=== PATIENT | female | born 1980 | race Two or more races ===

== ENCOUNTER 2025-03-24 16:14 | Emergency (ER) | payer MEDICAID, SELFPAY ==
[2025-03-24 16:15] VITALS: BMI 52.1
[2025-03-24 16:35] VITALS: BP 176/80; PULSE 87; RESP 18; TEMP 36.8; O2SAT 97
--- NOTE | 2025-03-24 16:43 | EDNOTE_ITS ---
<Statement entered by Charisse Whitney MD - 03/27/25 07:25> As co-signing physician, I was present and available for consult prn. I concur with the plan and care as documented by the midlevel provider. ED General RME/HPI General Chief complaint: General Adult/Misc Complain Stated complaint: FRYING TACOS, OIL SPLASHED OVER ARMS/ABD Time Seen by Provider: 03/24/25 16:58 Source: patient Arrival date/time: 03/24/25 16:14 44-year-old female with no known medical history presents to the emergency room with a chief complaint of small box to her abdomen and left arm. Patient states she was frying tacos and the oil splashed and got her in the abdomen and in her arms. Mode of arrival: ambulatory Limitations: no limitations Related Data Previous Rx's ?Medication ?Instructions ?Recorded hydrocortisone acetate 25 mg 25 mg IN BID for hemorrho ids #12 ea 12/11/21 rectal suppository (Anusol-HC) ondansetron 8 mg disintegrating 8 mg PO Q6HR PRN nause a and 05/13/23 tablet vomiting #20 tabs tramadol 50 mg tablet 50 mg PO BID PRN pain #7 tab s 06/11/23 bacitracin 500 unit/gram topical 1 applic topical TID #28 grams 03/24/25 ointment Allergies Allergy/AdvReac Type Severity Reaction Status Date / Time aspirin Allergy Unknown Hives Verified 03/24/25 16:18 Review of Systems Review of Systems Systems Reviewed: All systems reviewed, normal except as documented Constitutional Constitutional: Reports system reviewed and no additional complaints, except as documented, Denies fatigue, Denies fever(s), Denies headache(s) and Denies weakness Eyes Eyes: Reports system reviewed and no additional complaints, except as documented, Denies blurry vision and Denies change in vision ENT Ears, Nose, Mouth, and Throat: Reports system reviewed and no additional complaints, except as documented, Denies otalgia, Denies headache(s), Denies nasal congestion, Denies throat swelling and Denies vertigo Cardiovascular Cardiovascular: Reports system reviewed and no additional complaints, except as documented, Denies chest pain, Denies dyspnea and Denies dyspnea on exertion Respiratory Respiratory: Reports system reviewed and no additional complaints, except as documented, Denies chest congestion, Denies cough, Denies dyspnea, Denies dyspnea on exertion and Denies wheezing Gastrointestinal Gastrointestinal: Reports system reviewed and no additional complaints, except as documented, Denies abdominal pain, Denies cramping, Denies nausea and Denies vomiting Genitourinary Genitourinary: Reports system reviewed and no additional complaints, except as documented Musculoskeletal Musculoskeletal: Reports system reviewed and no additional complaints, except as documented and Denies back pain Integumentary/Breasts Skin/Breast: Reports system reviewed and no additional complaints, except as documented and Reports wounds Neurologic Neurologic: Reports system reviewed and no additional complaints, except as documented, Denies confusion, Denies headache(s), Denies lack of coordination, Denies vertigo and Denies weakness Psychiatric Psychiatric: Reports system reviewed and no additional complaints, except as documented, Denies anxiety, Denies confusion, Denies depression, Denies paranoia, Denies suicidal ideation and Denies tactile hallucinations Endocrine Endocrine: Reports system reviewed and no additional complaints, except as documented and Denies fatigue Hematologic/Lymphatic Hematologic/Lymphatic: Reports system reviewed and no additional complaints, except as documented and Denies lymphadenopathy Allergic/Immunologic Allergic/Immunologic: Reports system reviewed and no additional complaints, except as documented, Denies throat swelling, Denies urticaria and Denies wheezing Past Medical History Past Medical History CARDIAC: Negative Cardiac Disorders or Congestive Heart Failure RESPIRATORY: Negative Chronic Obstructive Pulmonary Disease (COPD) or Asthma GENITOURINARY: Negative Renal Disease ENDOCRINE: Positive Diabetes Mellitus Type 2; Negative Diabetes Mellitus Type 1 HEMATOLOGIC: Negative Sickle Cell Disease Social History SMOKING STATUS: Never smoker ED Exam General Limitations: Present no limitations General appearance: Present alert and in no apparent distress Head Head exam: Present atraumatic Eye Eye exam: Present normal appearance, PERRL and EOMI ENT ENT exam: Present normal exam, normal oropharynx and mucous membranes moist Neck Neck exam: Present normal inspection, full ROM and trachea midline Chest Chest inspection: Present normal inspection and symmetric chest wall rise Respiratory Respiratory exam: Present normal lung sounds bilaterally Cardiovascular Cardiovascular exam: Present regular rate, normal rhythm and normal heart sounds Abdominal Exam Abdominal exam: Present soft and normal bowel sounds Extremities Exam Extremities exam: Present normal inspection and full ROM Back Exam Back exam: Present normal inspection and full ROM Neurological Exam Neurological exam: Present alert, oriented X3 and CN II-XII intact Psychiatric Psychiatric exam: Present normal affect and normal mood Skin Skin exam: Present warm, dry, intact and normal color Expanded Skin Exam Type of lesion: Present other (Burn) Distribution: Present abdomen and LUE Description: Present erythematous and swelling; Absent blisters Body image: 2 1. First-degree burn to the left upper quadrant abdominal area. It is erythemic and not in a blister 2. Multiple first-degree box from oil splashing on her left upper arm. She has a first-degree burn erythemic and not in the blister. Course Quality Measures none Orders Category Date Time Status Wound Care X1 Care 03/24/25 16:42 Completed Bacitracin Oint pkt Med 03/24/25 16:42 Discontinued 1 gm TOP X1 ONE Vital Signs Vital signs: Vital Signs Temperature 98.2 F 03/24/25 16:35 Pulse Rate 87 03/24/25 16:35 Respiratory Rate 18 03/24/25 16:35 Blood Pressure 176/80 H 03/24/25 16:35 Pulse Oximetry (%) 97 03/24/25 16:35 Oxygen Delivery Method Room Air 03/24/25 16:35 Discharge Plan Plan Patient Disposition: HOME (Self Care) Discharge Disposition comment: Stable Prescriptions/Referrals Prescriptions/Med Rec: New bacitracin 500 unit/gram ointment 1 applic topical TID Qty: 28 0RF No Action hydrocortisone acetate [Anusol-HC] 25 mg suppository 25 mg IN BID Qty: 12 0RF ondansetron 8 mg tablet,disintegrating 8 mg PO Q6HR PRN (Reason: nausea and vomiting) Qty: 20 0RF tramadol 50 mg tablet 50 mg PO BID PRN (Reason: pain) Qty: 7 0RF Problem List Clinical Impression: First degree burn Patient/Caregiver Discharge Instructions Education Materials: ED BURN Wound Check [No Infection] Additional Instructions: Please follow-up with your primary care provider in the next 24 to 48 hours. Antibiotic ointment was sent to your pharmacy please pick it up and put it on your wounds. For any evidence of worsening signs or symptoms return to the emergency room immediate Print Language: Vietnamese Stand Alone Forms: [employer] Award Info., Patient Portal Info Letter PA/REVENUE FIELD AUDITOR Supervising Physician PA/REVENUE FIELD AUDITOR Supervising Physician: Dr. Starkey MDM Narrative MDM hospital course (for use when minimal MDM required): 44-year-old female with no known medical history presents to the emergency room with a chief complaint of small box to her abdomen and left arm. Patient states she was frying tacos and the oil splashed and got her in the abdomen and in her arms. Patient is hemodynamically stable and in no apparent distress. Physical examination shows a first-degree burn to the left upper quadrant abdominal area and left upper arm from frying oil splashing on it. The box are erythemic, and not in the blister. A bacitracin dressing was placed Xeroform and bacitracin dressing was placed in the abdominal burn patient was discharged and educated to follow-up with her primary care provider and return to the emergency room for any evidence of worsening signs or symptoms. None of the box are circumferential or extend past the epidermis Clinical Information Provided by: patient Medical [facility] Meds/Rx considered, not ordered None Labs/Rad/Tests considered, not ordered None Chronic Illness/Social Conditions which may negatively complicate care or outcome(s)-explain: None or not applicable EKG EKG not done Labs Labs: none Imaging Imaging interpretation: none or see narrative above Medication Administration(s) Medication Administration History Discontinued Medications Bacitracin (Bacitracin Oint 1 Gm Packet) 1 gm TOP X1 ONE Stop: 03/24/25 16:43 Diagnosis Differential Diagnosis ED Complaint MDM: First-degree burn/second-degree burn/third-degree burn Diagnoses ruled out and/or further discussions: Second-degree burn/third-degree burn
== END 2025-03-24 18:07 | disposition home or self-care (01) ==
LOC: SERX 17:05
PROVIDERS: Emergency Provider Family Medicine; PCP Nurse Practitioner Family
DX: T22.10XA Burn of first degree of shoulder and upper limb, except wrist and hand, unspecified site, initial encounter (principal); T21.12XA Burn of first degree of abdominal wall, initial encounter; T31.22 Burns involving 20-29% of body surface with 20-29% third degree burns; X10.2XXA Contact with fats and cooking oils, initial encounter; Y93.G3 Activity, cooking and baking
CPT/HCPCS: 99282

== ENCOUNTER 2025-06-06 06:12 | Emergency (ER) | payer MEDICAID, SELFPAY ==
[2025-06-06 06:13] VITALS: BMI 52.9
[2025-06-06 06:27] VITALS: BP 146/85; PULSE 62; RESP 18; TEMP 36.4; O2SAT 98
--- NOTE | 2025-06-06 06:29 | EDNOTE_ITS ---
Lower Extremity Injury RME/HPI General Chief Complaint: Ankle/Foot Injury Stated Complaint: LEFT FOOT PAIN Time Seen by Provider: 06/06/25 06:14 Source: patient Arrival date/time: 06/06/25 06:12 45-year-old female with no known medical history presents to the emergency room with a chief complaint of left foot pain. Patient states her pain is localized to the bottom of her foot and extends from her heel to her toes. Patient denies any trauma Mode of arrival: ambulatory Limitations: no limitations Related Data Previous Rx's ?Medication ?Instructions ?Recorded hydrocortisone acetate 25 mg 25 mg MO BID for hemorrho ids #12 ea 12/11/21 rectal suppository (Anusol-HC) ondansetron 8 mg disintegrating 8 mg PO Q6HR PRN nause a and 05/13/23 tablet vomiting #20 tabs tramadol 50 mg tablet 50 mg PO BID PRN pain #7 tab s 06/11/23 bacitracin 500 unit/gram topical 1 applic topical TID #28 grams 03/24/25 ointment ibuprofen 800 mg tablet 800 mg PO Q8H PRN pain #20 t abs 06/06/25 Allergies Allergy/AdvReac Type Severity Reaction Status Date / Time aspirin Allergy Unknown Hives Verified 03/24/25 16:18 Review of Systems Review of Systems Systems Reviewed: All systems reviewed, normal except as documented Constitutional Constitutional: Reports system reviewed and no additional complaints, except as documented, Denies fatigue, Denies fever(s), Denies headache(s) and Denies weakness Eyes Eyes: Reports system reviewed and no additional complaints, except as documented, Denies blurry vision and Denies change in vision ENT Ears, Nose, Mouth, and Throat: Reports system reviewed and no additional complaints, except as documented, Denies otalgia, Denies headache(s), Denies nasal congestion, Denies throat swelling and Denies vertigo Cardiovascular Cardiovascular: Reports system reviewed and no additional complaints, except as documented, Denies chest pain, Denies dyspnea and Denies dyspnea on exertion Respiratory Respiratory: Reports system reviewed and no additional complaints, except as documented, Denies chest congestion, Denies cough, Denies dyspnea, Denies dyspnea on exertion and Denies wheezing Gastrointestinal Gastrointestinal: Reports system reviewed and no additional complaints, except as documented, Denies abdominal pain, Denies cramping, Denies nausea and Denies vomiting Genitourinary Genitourinary: Reports system reviewed and no additional complaints, except as documented Musculoskeletal Musculoskeletal: Reports system reviewed and no additional complaints, except as documented, Reports abnormal gait, Denies arthralgias, Denies back pain, Denies joint swelling, Denies limited range of motion, Reports muscle cramps, Reports muscle weakness, Denies numbness and Reports stiffness Integumentary/Breasts Skin/Breast: Reports system reviewed and no additional complaints, except as documented and Denies wounds Neurologic Neurologic: Reports system reviewed and no additional complaints, except as documented, Reports abnormal gait, Denies confusion, Denies headache(s), Denies lack of coordination, Denies numbness, Denies vertigo and Denies weakness Psychiatric Psychiatric: Reports system reviewed and no additional complaints, except as documented, Denies anxiety, Denies confusion, Denies depression, Denies paranoia, Denies suicidal ideation and Denies tactile hallucinations Endocrine Endocrine: Reports system reviewed and no additional complaints, except as documented and Denies fatigue Hematologic/Lymphatic Hematologic/Lymphatic: Reports system reviewed and no additional complaints, except as documented and Denies lymphadenopathy Allergic/Immunologic Allergic/Immunologic: Reports system reviewed and no additional complaints, except as documented, Denies throat swelling, Denies urticaria and Denies wheezing Past Medical History Past Medical History CARDIAC: Negative Cardiac Disorders or Congestive Heart Failure RESPIRATORY: Negative Chronic Obstructive Pulmonary Disease (COPD) or Asthma GENITOURINARY: Negative Renal Disease ENDOCRINE: Positive Diabetes Mellitus Type 2; Negative Diabetes Mellitus Type 1 HEMATOLOGIC: Negative Sickle Cell Disease Social History SMOKING STATUS: Never smoker ED Exam General Limitations: Present no limitations General appearance: Present alert and in no apparent distress Head Head exam: Present atraumatic Eye Eye exam: Present normal appearance, PERRL and EOMI ENT ENT exam: Present normal exam, normal oropharynx and mucous membranes moist Neck Neck exam: Present normal inspection, full ROM and trachea midline Chest Chest inspection: Present normal inspection and symmetric chest wall rise Respiratory Respiratory exam: Present normal lung sounds bilaterally Cardiovascular Cardiovascular exam: Present regular rate, normal rhythm and normal heart sounds Abdominal Exam Abdominal exam: Present soft and normal bowel sounds Extremities Exam Extremities exam: Present normal inspection and full ROM Expanded Lower Extremity Exam Hip/Pelvis exam: Present normal inspection Upper leg exam: Present normal inspection Knee exam: Present normal inspection Lower leg exam: Present normal inspection Ankle exam: Present normal inspection Foot/toe exam: Present tenderness, swelling and calcaneal tenderness; Absent full ROM Gait: observed and limited by pain Back Exam Back exam: Present normal inspection and full ROM Neurological Exam Neurological exam: Present alert, oriented X3 and CN II-XII intact Psychiatric Psychiatric exam: Present normal affect and normal mood Skin Skin exam: Present warm, dry, intact and normal color Course Quality Measures none Orders Category Date Time Status Ketorolac Inj [Toradol Inj] Med 06/06/25 06:28 Once 30 mg IM X1 ONE Vital Signs Vital signs: Vital Signs Temperature 97.5 F 06/06/25 06:27 Pulse Rate 62 06/06/25 06:27 Respiratory Rate 18 06/06/25 06:27 Blood Pressure 146/85 H 06/06/25 06:27 Pulse Oximetry (%) 98 06/06/25 06:27 Oxygen Delivery Method Room Air 06/06/25 06:27 Extremity Injury, Lower MDM Narrative MDM Narrative:: 45-year-old female with no known medical history presents to the emergency room with a chief complaint of left foot pain. Patient states her pain is localized to the bottom of her foot and extends from her heel to her toes. Patient denies any trauma Patient is hemodynamically stable and in no apparent distress Physical examination shows tenderness with palpation of the bottom of her foot. The findings are consistent with plantars fasciitis. The patient denies any trauma she denies any slip or fall or any bone or joint injury. Patient states she was hiking last week and since then has had this pain. The patient is very tender at the bottom of her foot next to her heel. Patient was discharged and educated to follow-up with primary care provider in the next 24 to 48 hours and return to the emergency room for any evidence of worsening signs or symptoms Patient data External records reviewed:: [facility] previous records Clinical information provided by:: patient Social determinants that could affect healthcare access:: none Patient has the following chronic illnesses:: No chronic illness How is presenting disease/condition affected by chronic disease/condition?: no chronic disease Evaluation data The following diagnostics were reviewed and interpreted by me:: lab results and radiology exam(s) Lab and/or radiology exams considered but not ordered:: Labs and radiology exams considered and ordered Interpretation Summary: N/A Medications / Prescriptions Medications or Prescriptions considered but not ordered:: Medication given Medication administrations:: Medication given Consultations Consultation(s) initiated? (list below): No Diagnosis Extremity Injury, Lower Differential Diagnosis: ankle sprain and strain, ankle fracture and other (Plantar fasciitis) Most likely diagnosis given after review of the tests above:: Plantar fasciitis Admission Indicated Admission indicated?: not indicated Admission Request Was there a request for admission?: No Disposition Plan Disposition Plan: Discharge Discharge Attestation Discharge Attestation: The patient and all family members were given an opportunity to ask questions and understood the discharge instructions. Discharge instructions specifically effects, indications for sooner follow up or return to the emergency department, and the expected course of current diagnosis. Patient condition: Stable Discharge Plan Plan Patient Disposition: HOME (Self Care) Discharge Disposition comment: Stable Prescriptions/Referrals Prescriptions/Med Rec: New ibuprofen 800 mg tablet 800 mg PO Q8H PRN (Reason: pain) Qty: 20 0RF No Action hydrocortisone acetate [Anusol-HC] 25 mg suppository 25 mg MO BID Qty: 12 0RF ondansetron 8 mg tablet,disintegrating 8 mg PO Q6HR PRN (Reason: nausea and vomiting) Qty: 20 0RF tramadol 50 mg tablet 50 mg PO BID PRN (Reason: pain) Qty: 7 0RF bacitracin 500 unit/gram ointment 1 applic topical TID Qty: 28 0RF Problem List Clinical Impression: Plantar fasciitis of left foot Patient/Caregiver Discharge Instructions Education Materials: Understanding Plantar Fasciitis, Treating Plantar Fasciitis, ED Plantar Fasciitis Additional Instructions: Please follow-up with your primary care provider in the next 24 to 48 hours Your findings are consistent with plantar fasciitis which is a common condition causing heel and arch pain due to inflammation of the plantar fascia, a thick band of tissue on the bottom of the foot. For any evidence of worsening signs or symptoms return to the emergency room immediately Print Language: Ghanaian Stand Alone Forms: [employer] Award Info., Work/School Release, Patient Portal Info Letter PA/JAYAL Supervising Physician PA/TOURIST CAMP ATTENDANT Supervising Physician: Dr. Segal
[2025-06-06] MEDS: KETOROLAC INJ 60 MG/2 ML VIAL 30 MG IM (06:35)
== END 2025-06-06 06:39 | disposition home or self-care (01) ==
LOC: SERX 06:38
PROVIDERS: Emergency Provider Emergency Medicine; PCP Family Medicine
DX: M72.2 Plantar fascial fibromatosis (principal)
CPT/HCPCS: 96372; 99282; J1885